=== PATIENT | female | born 1955 | race Caucasian/White ===

== ENCOUNTER 2017-11-22 13:27 | Inpatient (IN) | payer SELFPAY ==
[2017-11-22] MEDS ORDERED: 0.9 % SODIUM CHLORIDE 10 ML DISP.SYRIN. IV (14:00)
[2017-11-22 14:12] LABS: ADD MAN DIFF? NO
[2017-11-22 14:16] LABS: BASO % 0 % (0-3); EOS % 0 % (0-3); HEMATOCRIT 43.1 % (36.0-47.0); HEMOGLOBIN 14.5 g/dL (12.0-15.5); LYMPH # 1.1 x10^3/uL (1.0-4.8); LYMPH % 19 % (24-48); MEAN CORPUSCULAR HEMOGLOBIN 35 pg (25-35); MEAN CORPUSCULAR HGB CONC 34 g/dL (31-37); MEAN CORPUSCULAR VOLUME 105 fL (79-100); MONO # 0.3 x10^3/uL (0.0-1.1); MONO % 5 % (0-9); NEUT # 4.3 x10^3uL (1.8-7.7); NEUT % 76 % (31-73); PLATELET COUNT 144 x10^3/uL (140-400); RED BLOOD COUNT 4.12 x10^6/uL (3.50-5.40); RED CELL DISTRIBUTION WIDTH 12.5 % (11.5-14.5); WHITE BLOOD COUNT 5.7 x10^3/uL (4.0-11.0)
[2017-11-22 14:31] LABS: ANION GAP 15 (6-14); BLOOD UREA NITROGEN 6 mg/dL (7-20); BUN/CREATININE RATIO 15 (6-20); CALCIUM 8.5 mg/dL (8.5-10.1); CARBON DIOXIDE 25 mmol/L (21-32); CHLORIDE 103 mmol/L (98-107); CREATININE 0.4 mg/dL (0.6-1.0); GFR 162.3; GLUCOSE 96 mg/dL (70-99); POTASSIUM 4.4 mmol/L (3.5-5.1); SODIUM 143 mmol/L (136-145)
[2017-11-22 14:32] LABS: INR 1.2 (0.8-1.1); PROTHROMBIN TIME PATIENT 14.9 SEC (11.7-14.0)
[2017-11-22] MEDS: IV NORMAL SALINE 1000ML BAG 1,000 ML IV ×3 (14:33→21:19)
[2017-11-22] MEDS: HYDROmorphone 2 MG/ML VIAL IV/SQ (14:34)
[2017-11-22 14:37] LABS: ALBUMIN 3.7 g/dL (3.4-5.0); ALK PHOS 204 U/L (46-116); ALT (SGPT) 83 U/L (14-59); AST (SGOT) 193 U/L (15-37); TOTAL BILIRUBIN 0.3 mg/dL (0.2-1.0); TOTAL PROTEIN 7.3 g/dL (6.4-8.2)
[2017-11-22] MEDS ORDERED: ONDANSETRON PF 4 MG/2 ML VIAL. IV ×5 (15:00→20:45)
[2017-11-22] MEDS ORDERED: ACETAMINOPHEN 500 MG TABLET PO (15:15)
[2017-11-22] MEDS ORDERED: NICOTINE 21MG PATCH. TD (15:15)
[2017-11-22] MEDS ORDERED: diphenhydrAMINE HCL 25 MG CAPSULE PO (15:15)
[2017-11-22] MEDS ORDERED: oxyCODONE/APAP 5/325 1 TAB TABLET PO (15:15)
[2017-11-22] MEDS ORDERED: ALPRAZolam 0.5 MG TABLET PO (15:15)
[2017-11-22] MEDS ORDERED: chlordiazePOXIDE HCL 25 MG CAPSULE PO (15:15)
[2017-11-22] MEDS: IV RINGERS,LACTATED 1000ML 1,000 ML IV ×2 (15:27→20:44)
[2017-11-22] MEDS ORDERED: PROCHLORPERAZINE 10 MG/2 ML VIAL. IV (15:30)
[2017-11-22] MEDS ORDERED: fentaNYL PF VIAL 100 MCG/2 ML VIAL IV ×4 (15:30→20:45)
[2017-11-22] MEDS ORDERED: HYDROmorphone 2 MG/ML VIAL IV ×2 (15:30→20:45)
[2017-11-22] MEDS ORDERED: MORPHINE SULFATE 2 MG/ML DISP.SYRIN. IV ×2 (15:30→20:45)
[2017-11-22 15:36] LABS: ETHANOL 194 mg/dL (0-10)
[2017-11-22] MEDS: MORPHINE SULFATE 4 MG/ML DISP.SYRIN. IV ×2 (16:48→23:19)
[2017-11-22] MEDS: LIDOCAINE 1% PF 2 ML VIAL. ID (18:04)
[2017-11-22] MEDS: HYDROmorphone 2 MG/ML VIAL IVP (18:14)
[2017-11-22] MEDS ORDERED: MIDAZOLAM HCL/PF 2 MG/2 ML VIAL. (18:41)
[2017-11-22] MEDS ORDERED: LIDOCAINE 1% PF 5 ML VIAL. (18:41)
[2017-11-22] MEDS ORDERED: ONDANSETRON PF 4 MG/2 ML VIAL. (18:41)
[2017-11-22] MEDS ORDERED: fentaNYL PF VIAL 100 MCG/2 ML VIAL (18:41)
[2017-11-22] MEDS ORDERED: PROPOFOL 20 ML IV (18:41)
[2017-11-22] MEDS ORDERED: DEXAMETHASONE SOD PHOS 20 MG/5 ML VIAL. (18:42)
[2017-11-22] MEDS ORDERED: PHENYLEPHRINE in 0.9% NACL PF 1 MG/10 ML SYRINGE. IV (19:20)
[2017-11-22] MEDS: ceFAZolin SODIUM 1 GM in IV DEXTROSE 5% 50 ML IV (19:25)
[2017-11-22] MEDS ORDERED: PROCHLORPERAZINE 10 MG/2 ML VIAL. (20:44)
[2017-11-22] MEDS ORDERED: oxyCODONE IR 5 MG TABLET PO (20:45)
[2017-11-22] MEDS ORDERED: DEXTROSE 50% 25 GM / 50ML DISP.SYRIN. IV (20:45)
[2017-11-22] MEDS ORDERED: HYDROcodone/APAP 7.5/325MG 1 TAB TABLET PO (20:45)
[2017-11-22] MEDS ORDERED: LIDOCAINE 1% PF 2 ML VIAL. ID (20:45)
[2017-11-22] MEDS ORDERED: POLYETHYLENE GLYCOL 3350 17 GM PACKET. PO (20:45)
[2017-11-22] MEDS: fentaNYL PF VIAL 100 MCG/2 ML VIAL IV ×2 (20:51→21:13)
[2017-11-22] MEDS: PROCHLORPERAZINE 10 MG/2 ML VIAL. IV (20:51)
[2017-11-22] MEDS: MORPHINE SULFATE 2 MG/ML DISP.SYRIN. IV ×2 (20:57→21:23)
[2017-11-22] MEDS: WARFARIN 7.5 MG TABLET. PO (22:03)
[2017-11-23] MEDS: ceFAZolin SODIUM IV Push 1 GM VIAL. IVP ×2 (00:55→06:14)
[2017-11-23] MEDS: MORPHINE SULFATE 4 MG/ML DISP.SYRIN. IV ×2 (02:04→06:14)
[2017-11-23] MEDS ORDERED: MAGNESIUM HYDROXIDE 2,400 MG/30 ML ORAL.SUSP. PO (06:00)
[2017-11-23 06:13] LABS: BASO % 0 % (0-3); EOS % 0 % (0-3); HEMATOCRIT 29.2 % (36.0-47.0); HEMOGLOBIN 9.7 g/dL (12.0-15.5); LYMPH # 0.5 x10^3/uL (1.0-4.8); LYMPH % 10 % (24-48); MEAN CORPUSCULAR HEMOGLOBIN 35 pg (25-35); MEAN CORPUSCULAR HGB CONC 33 g/dL (31-37); MEAN CORPUSCULAR VOLUME 106 fL (79-100); MONO # 0.3 x10^3/uL (0.0-1.1); MONO % 5 % (0-9); NEUT # 4.9 x10^3uL (1.8-7.7); NEUT % 85 % (31-73); PLATELET COUNT 89 x10^3/uL (140-400); RED BLOOD COUNT 2.76 x10^6/uL (3.50-5.40); RED CELL DISTRIBUTION WIDTH 12.4 % (11.5-14.5); WHITE BLOOD COUNT 5.7 x10^3/uL (4.0-11.0)
[2017-11-23 06:14] LABS: ADD MAN DIFF? YES
[2017-11-23 06:45] LABS: ANION GAP 14 (6-14); BLOOD UREA NITROGEN 11 mg/dL (7-20); CALCIUM 7.3 mg/dL (8.5-10.1); CARBON DIOXIDE 21 mmol/L (21-32); CHLORIDE 103 mmol/L (98-107); CREATININE 0.5 mg/dL (0.6-1.0); GFR 125.4; GLUCOSE 117 mg/dL (70-99); POTASSIUM 4.4 mmol/L (3.5-5.1); SODIUM 138 mmol/L (136-145)
[2017-11-23] MEDS: IV NORMAL SALINE 1000ML BAG 1,000 ML IV (06:55)
[2017-11-23] MEDS: MULTIVITAMIN with MINERAL TABLET. PO (09:41)
[2017-11-23] MEDS: THIAMINE 100 MG TABLET. PO (09:41)
[2017-11-23] MEDS: FOLIC ACID 1 MG TABLET. PO (09:41)
[2017-11-23] MEDS: SENNOSIDES/DOCUSATE 8.6/50MG TABLET. PO (09:42)
[2017-11-23] MEDS: HYDROcodone/APAP 7.5/325MG 1 TAB TABLET PO (09:42)
[2017-11-23 10:02] LABS: % BANDS 5 % (0-9); % LYMPHS 12 % (24-48); % MONOS 2 % (0-10); % SEGS 81 % (35-66); ANISOCYTOSIS SLIGHT; MICROCYTOSIS SLIGHT; PLT ESTIMATE DECREASED (ADEQUATE)
[2017-11-23] MEDS ORDERED: BISACODYL 10 MG SUPP.RECT. PR (16:00)
[2017-11-23] MEDS ORDERED: WARFARIN 5 MG TABLET. PO (16:00)
== END 2017-11-23 15:30 | disposition home or self-care (01) | DRG 482 ==
LOC: ER 13:27 → 4 NORTH 14:54
PROC: 0QS704Z Reposition Left Upper Femur with Internal Fixation Device, Open Approach (ICD-10-PCS; principal; 2017-11-22 18:15)
DX: S72.142A Displaced intertrochanteric fracture of left femur, initial encounter for closed fracture (principal); F17.210 Nicotine dependence, cigarettes, uncomplicated; Z90.710 Acquired absence of both cervix and uterus; Y08.89XA Assault by other specified means, initial encounter; Y93.89 Activity, other specified; Y92.89 Other specified places as the place of occurrence of the external cause; Y99.8 Other external cause status
CPT/HCPCS: 36415; 71045; 73502; 76000; 80048; 80053; 82306; 85007; 85025; 85610; 93005; 96361; 96374; 96375; 97110-GO; 97116-GP; 97161-GP; 97166-GO; 97535-GO; 99285; 99285-25; C1713; C1887; G0480; J0690; J0780; J1100; J1170; J2060; J2250; J2270; J2370; J2405; J2704; J3010; J7030